=== PATIENT | male | born 1945 | race Caucasian/White ===

== ENCOUNTER 2019-12-22 06:51 | Day surgery (SDC) | payer MEDICARE, OTHER ==
[~2019-12-22] VITALS: Ht 172.7 cm; Wt 77.7 kg
[2019-12-22] VITALS (11 sets, daily range): BP systolic 131–152; BP diastolic 69–97; PULSE 57–84; TEMP 97.4–98
[2019-12-22] MEDS ORDERED: SYNTHROID0.05 MG/TA PO (07:49)
[2019-12-22] MEDS ORDERED: MULTI VITAMINS1 TAB PO (07:54)
[2019-12-22] MEDS ORDERED: OMEGA-3 1000 MG1 CAP PO (07:55)
[2019-12-22] MEDS ORDERED: EXCEDRIN TENSIO1 CAP PO (07:55)
[2019-12-22] MEDS ORDERED: NEXIUM 20MG20 MG PO (07:56)
--- NOTE | 2019-12-22 11:45 | NUR ---
Patient is back from surgery. Oriented patient to room. Patient is alert and oriented. Oriented patient to room. He denies nausea. Patient stated he is having dull aching and pain to his upper shoulders and neck. Explained it could be gas pain from the surgery. Placed a warm banket to the area. at bedside. No other changes at this time. Call light within reach.
--- NOTE | 2019-12-22 18:00 | NUR ---
Patient has been doing well. He has been up to the bathroom once. He continues to have dull aching. Tolerated full liquid diet without nausea. No other changes at this time. Call light within reach. Patient is aware he will need to walk in the hallway tonight. at bedside.
[2019-12-23 04:09] VITALS: BP 139/72; PULSE 74; TEMP 98.5
--- NOTE | 2019-12-23 04:31 | NUR ---
Patient has slept well throughout the night. Vitals remain stable. Tolerated jello at HS along with PRN pain pill. States [place] doesn't work very well for him and he would rather have extra strength Tylenol or Motrin. Patient states his pain is under control and he does not want me to call the physician for these orders. Will report this to day shift, to get orders for either medication. Urinating well. PO fluids tolerated well. IV to INT. 5 lap sites CDI and covered with bandaids. Will continue to monitor. at bedside.
--- NOTE | 2019-12-23 07:00 | NUR ---
Report received from THUY Deutsch. pT in bed resting with at bedside, feeling well, denies needs, will continue to monitor.
[2019-12-23 07:54] VITALS: BP 147/69; PULSE 73; TEMP 97.7
--- NOTE | 2019-12-23 08:00 | NUR ---
Assessment charted. Pt doing well, 5 lap sites removed 4 bandaids and replaced 5th bandaid d/t small amount of drainage. Abd is distended but soft, passing gas. Resting quietly tolerating PO well, INT LW. Will continue to monitor.
--- NOTE | 2019-12-23 11:07 | NUR ---
Discharge teaching completed at this time. INT dc'd, tip intact. Pt feeling well, had a BM just now. Reviewed f/u appointment, discharge packet, escorted out via w/c with surgical staff. Criteria met.
== END 2019-12-23 11:00 | disposition home or self-care (01) ==
LOC: SDCO 06:51 → SURG 11:45 → SDCO 12-23 11:00
DX: K44.9 Diaphragmatic hernia without obstruction or gangrene (principal); K21.9 Gastro-esophageal reflux disease without esophagitis; M19.90 Unspecified osteoarthritis, unspecified site; Z80.3 Family history of malignant neoplasm of breast; Z82.49 Family history of ischemic heart disease and other diseases of the circulatory system
CPT/HCPCS: OP; J0690; J1100; J1885; J2250; J2370; J2405; J2704; J2795; J3010; J7120

== ENCOUNTER 2020-06-04 08:19 | Day surgery (SDC) | payer MEDICARE, OTHER ==
[~2020-06-04] VITALS: Ht 172.7 cm; Wt 70.2 kg
[~2020-06-04 08:19] MED LIST: EXCEDRIN TENSIO1 CAP PO; MULTI VITAMINS1 TAB PO; NEXIUM 20MG20 MG PO; OMEGA-3 1000 MG1 CAP PO; SYNTHROID0.05 MG/TA PO
[2020-06-04 08:51] VITALS: BP 130/74; PULSE 66; TEMP 97.1
[2020-06-04] MEDS ORDERED: OMEGA-3 1000 MG1 CAP PO (09:06)
[2020-06-04] MEDS ORDERED: MASON NATURAL2000 IU PO (09:06)
[2020-06-04] MEDS ORDERED: ONE-A-DAY ESSE1 EACH PO (09:10)
[2020-06-04] MEDS ORDERED: NORCO 325 MG-51 TAB PO (11:22)
[2020-06-04 12:00] VITALS: BP 129/72; PULSE 68; TEMP 97.6
[2020-06-04 12:15] VITALS: BP 134/66; PULSE 64
[2020-06-04 12:45] VITALS: BP 112/57; PULSE 56
[2020-06-04 13:00] VITALS: BP 107/63; PULSE 80
== END 2020-06-04 13:56 | disposition home or self-care (01) ==
LOC: SDCO 08:19
DX: K81.1 Chronic cholecystitis (principal); E78.5 Hyperlipidemia, unspecified; K21.9 Gastro-esophageal reflux disease without esophagitis; Z86.010 Personal history of colon polyps; Z88.8 Allergy status to other drugs, medicaments and biological substances; Z79.899 Other long term (current) drug therapy; Z82.3 Family history of stroke; Z80.42 Family history of malignant neoplasm of prostate; E03.9 Hypothyroidism, unspecified; M19.90 Unspecified osteoarthritis, unspecified site
CPT/HCPCS: J0690; J2704; J2710; J3010; J7120